=== PATIENT | male | born 1955 | race Caucasian/White ===

== ENCOUNTER 2017-10-11 12:52 | Day surgery (SDC) | payer OTHER ==
[~2017-10-11 12:52] MED LIST: LISI-360 PO; WELL150T PO; XANA1TAB6 PO; ZOCO20TA PO
[2017-10-11 13:31] VITALS: BP 138/75; PULSE 100; RESP 14; TEMP 98.7; O2SAT 96
[2017-10-11 13:50] VITALS: BP 127/85; PULSE 95; RESP 20; TEMP 98; O2SAT 96
[2017-10-11] MEDS ORDERED: LIDOCAINE HCL 1% 20 ML VIAL ONE (13:52)
[2017-10-11 14:05] VITALS: BP 131/92; PULSE 91; RESP 20; O2SAT 94
--- NOTE | 2017-10-11 15:34 | RADRPT ---
EXAM DATE/TIME: 10/11/2017 13:08 [place] COMPARISON: No previous studies available for comparison. EXTERNAL COMPARISON: [facility], CT SOFT TISSUE NECK W/ AND WITHOUT CONTRAST, Sep 27 2017, [facility], T HYROID US, June 18, 2015. INDICATIONS : Right thyroid calcification. MEDICAL HISTORY : Hypertension. SURGICAL HISTORY : Cervical fusion. ENCOUNTER: Initial ACUITY: 2 weeks PAIN SCORE: 2/10 LOCATION: Right neck ORGAN: Right thyroid lobe SPECIMENS: Three fine needle aspirate(s) submitted for pathologic evaluation. DEVICE: 25 gauge needle Post procedure scanning reveals no hematoma or other complication. The possibility does exist that the tissue obtained will be non-diagnostic. If the sample is non-janet gnostic a repeat biopsy or surgical biopsy may need to be performed. TECHNIQUE: 1. Ultrasound guidance for needle biopsy. 2. Needle biopsy. The risks, benefits and alternatives to the procedure were explained and verbal and written consent w as obtained. The site was prepped in sterile fashion. Full sterile technique was used, including ca p, mask, sterile gloves and gown and a large sterile sheet. Hand hygiene and 2% chlorhexidine and/or betadine/alcohol prep was utilized per protocol for cutaneous antisepsis. The skin and subcutaneous tissues were infiltrated with local anesthetic solution. Sterile gel and sterile probe cover were u tilized for ultrasound guidance. With the patient on the ultrasound table, images were obtained. A needle was advanced into the identified target and the number of specimens as above obtained and gandhi bmitted for pathologic evaluation. The patient tolerated the procedure well and left the ultrasound suite in stable condition. CONCLUSION: Uncomplicated ultrasound guided needle biopsy of right thyroid lobe nodule containing calcifications. Adair Dunlap MD on October 11, 2017 at 15:31 Board Certified Radiologist. This report was verified electronically.
== END 2017-10-11 15:11 | disposition home or self-care (01) ==
LOC: HRAD 12:52 → HRIP 12:55 → HRAD 15:11
PROVIDERS: ATTEND Otolaryngology Otolaryngology/Facial Plastic Surgery
DX: E04.1 Nontoxic single thyroid nodule (principal); I10 Essential (primary) hypertension
CPT/HCPCS: 10022; 76942; 88172; 88173